=== PATIENT | female | born 1980 | race Caucasian/White ===

== ENCOUNTER 2023-08-19 11:11 | Emergency (ER) | payer MEDICAID ==
[~2023-08-19] VITALS: Ht 167.6 cm; Wt 81.2 kg
[~2023-08-19 11:11] MED LIST: ASPI-1265 PO; CLON-529 PO; DOCU100C41 PO; DOL10T PO; HYDR-4353 PO; LISI20TA28 PO; METO50TA7 PO
[2023-08-19 11:18] VITALS: BP 138/77; PULSE 110; RESP 18; TEMP 99.1; O2SAT 98
[2023-08-19 11:51] LABS: URINE HCG NEGATIVE (NEG)
[2023-08-19 11:56] LABS: BASOPHILS # (AUTO) 0.1 X10'3 (0-0.2); BASOPHILS % (AUTO) 0.4 % (0-1); EOSINOPHILS # (AUTO) 0.6 X10'3 (0-0.9); EOSINOPHILS % (AUTO) 4.1 % (0-6); HEMATOCRIT 41.2 % (35.0-45.0); HEMOGLOBIN 13.7 g/dl (12.0-16.0); LYMPHOCYTES # (AUTO) 2.1 X10'3 (1.1-4.8); LYMPHOCYTES % (AUTO) 13.4 % (21-51); MEAN CORPUSCULAR HGB CONC 33.3 g/dL (33.0-36.5); MEAN PLATELET VOLUME 8.2 FL (7.4-10.4); MONOCYTES % (AUTO) 6.5 % (2-12); NEUTROPHILS % (AUTO) 75.6 % (42-75); PLATELET COUNT 306 X10'3 (140-440); RED BLOOD COUNT 4.58 X10'6 (4.20-5.60); RED CELL DISTRIBUTION WIDTH 14.3 % (11.5-14.5); WHITE BLOOD COUNT 15.9 X10'3 (4.5-11.0)
[2023-08-19 11:58] LABS: BILIRUBIN,URINE MODERATE (Neg); CLARITY,URINE CLOUDY (Clear); COLOR,URINE YELLOW (Yellow); GLUCOSE, URINE NEGATIVE (Neg); KETONES,URINE 15 mg/dl (Neg); LEUKOCYTE ESTERASE ,URINE LARGE (Neg); OCCULT BLOOD,URINE NEGATIVE (Neg); PROTEIN,URINE 30 mg/dl (Neg)
[2023-08-19 12:04] LABS: UA COLLECTION TYPE CLN CATCH MIDSTREAM
[2023-08-19 12:04] LABS: ALANINE AMINOTRANSFERASE 12 U/L (12-78); ALBUMIN 3.8 G/DL (3.4-5.0); ALBUMIN/GLOBULIN RATIO 0.9 (1.1-1.5); ALKALINE PHOSPHATASE 111 IU/L (46-116); ANION GAP 12 (8-16); ASPARTATE AMINO TRANSFERASE 18 U/L (10-37); BILIRUBIN,TOTAL 0.3 MG/DL (0.1-1.0); BLOOD UREA NITROGEN 9 MG/DL (7-18); BUN/CREATININE RATIO 6.8 (10.0-20.0); CHLORIDE 101 MMOL/L (99-107); CREATININE 1.32 MG/DL (0.40-0.90); GLUCOSE 102 MG/DL (70-104); LIPASE 56 U/L (16-77); POTASSIUM 3.6 MMOL/L (3.5-5.1); SODIUM 141 MMOL/L (135-145); TOTAL CARBON DIOXIDE 28.3 MMOL/L (24-32); eCRCL 50 ML/MIN; eGFR 44 ML/MIN
[2023-08-19 12:05] LABS: NITRITES, URINE NEGATIVE (Neg)
[2023-08-19 12:16] LABS: RBC,URINE NONE SEEN /HPF (0-2)
[2023-08-19 12:17] LABS: MUCUS STRANDS FEW /LPF (Neg); SQUAMOUS EPITHELIAL CELL,UR MANY /LPF (FEW)
[2023-08-19 12:18] LABS: BACTERIA,URINE 3+ /HPF (Neg); WBC,URINE TNTC /HPF (0-4)
== END 2023-08-19 17:37 | disposition left against medical advice (07) ==
LOC: ER 11:11
DX: R10.12 Left upper quadrant pain (principal); R11.0 Nausea; Z53.21 Procedure and treatment not carried out due to patient leaving prior to being seen by health care provider
CPT/HCPCS: 36415; 80053; 81001; 81025; 83690; 85025; 99281

== ENCOUNTER 2023-09-14 12:40 | Emergency (ER) | payer MEDICAID ==
[~2023-09-14] VITALS: Ht 167.6 cm; Wt 77.0 kg
[2023-09-14] MEDS ORDERED: hydrOXYzine 25 MG tablet PO ONE (12:45)
[2023-09-14 13:08] LABS: BASOPHILS # (AUTO) 0.1 X10'3 (0-0.2); BASOPHILS % (AUTO) 0.7 % (0-1); EOSINOPHILS # (AUTO) 0.4 X10'3 (0-0.9); EOSINOPHILS % (AUTO) 3.4 % (0-6); HEMOGLOBIN 13.3 g/dl (12.0-16.0); LYMPHOCYTES # (AUTO) 1.5 X10'3 (1.1-4.8); LYMPHOCYTES % (AUTO) 13.8 % (21-51); MEAN CORPUSCULAR HEMOGLOBIN 29.7 PG (27.0-31.0); MEAN CORPUSCULAR HGB CONC 33.2 g/dL (33.0-36.5); MEAN CORPUSCULAR VOLUME 89.3 FL (78-98); MEAN PLATELET VOLUME 7.7 FL (7.4-10.4); MONOCYTES # (AUTO) 0.7 X10'3 (0-0.9); MONOCYTES % (AUTO) 6.7 % (2-12); NEUTROPHILS # (AUTO) 8.2 X10'3 (1.8-7.7); NEUTROPHILS % (AUTO) 75.4 % (42-75); PLATELET COUNT 349 X10'3 (140-440); RED BLOOD COUNT 4.48 X10'6 (4.20-5.60); WHITE BLOOD COUNT 10.9 X10'3 (4.5-11.0)
[2023-09-14 13:37] LABS: ALANINE AMINOTRANSFERASE 25 U/L (12-78); ALBUMIN 3.6 G/DL (3.4-5.0); ALBUMIN/GLOBULIN RATIO 0.8 (1.1-1.5); ALKALINE PHOSPHATASE 117 IU/L (46-116); AMYLASE 54 U/L (25-115); ANION GAP 10 (8-16); ASPARTATE AMINO TRANSFERASE 20 U/L (10-37); BILIRUBIN,TOTAL 0.3 MG/DL (0.1-1.0); BLOOD UREA NITROGEN 9 MG/DL (7-18); BUN/CREATININE RATIO 7.2 (10.0-20.0); CALCIUM 9.5 MG/DL (8.5-10.1); CHLORIDE 100 MMOL/L (99-107); CREATININE 1.25 MG/DL (0.40-0.90); GLUCOSE 106 MG/DL (70-104); LIPASE 52 U/L (16-77); POTASSIUM 3.7 MMOL/L (3.5-5.1); SODIUM 140 MMOL/L (135-145); TOTAL CARBON DIOXIDE 29.6 MMOL/L (24-32); eCRCL 53 ML/MIN; eGFR 46 ML/MIN
[2023-09-14 16:07] VITALS: TEMP 98.2
[2023-09-14 16:40] LABS: BILIRUBIN,URINE SMALL (Neg); CLARITY,URINE SLIGHTLY CLOUDY (Clear); COLOR,URINE YELLOW (Yellow); GLUCOSE, URINE NEGATIVE (Neg); KETONES,URINE TRACE mg/dl (Neg); LEUKOCYTE ESTERASE ,URINE TRACE (Neg); NITRITES, URINE NEGATIVE (Neg); OCCULT BLOOD,URINE NEGATIVE (Neg); PROTEIN,URINE 30 mg/dl (Neg); URINE HCG NEGATIVE (NEG); UROBILINOGEN,URINE 0.2 E.U/dL (0.2-1.0)
[2023-09-14 16:49] LABS: SQUAMOUS EPITHELIAL CELL,UR MANY /LPF (FEW); UA COLLECTION TYPE CLN CATCH MIDSTREAM
[2023-09-14 16:50] LABS: MUCUS STRANDS MANY /LPF (Neg)
[2023-09-14 16:51] LABS: BACTERIA,URINE 2+ /HPF (Neg); TRANSITIONAL EPI CELLS,URINE FEW /HPF
[2023-09-14] MEDS ORDERED: METR-159 PO (17:48)
[2023-09-14] MEDS ORDERED: POLY119P2 PO (17:48)
[2023-09-14] MEDS ORDERED: CIPR-259 PO (17:48)
[2023-09-14 17:56] VITALS: BP 140/78; PULSE 71; RESP 14; O2SAT 96
== END 2023-09-14 17:58 | disposition home or self-care (01) ==
LOC: ER 12:41
DX: K52.9 Noninfective gastroenteritis and colitis, unspecified (principal); I12.9 Hypertensive chronic kidney disease with stage 1 through stage 4 chronic kidney disease, or unspecified chronic kidney disease; N18.9 Chronic kidney disease, unspecified; Z79.82 Long term (current) use of aspirin; Z79.899 Other long term (current) drug therapy; Z98.890 Other specified postprocedural states
CPT/HCPCS: 36415; 74176; 80053; 81001; 81025; 82150; 83605; 83690; 85025; 99284